=== PATIENT | female | born 1990 | race Caucasian/White ===

== ENCOUNTER → 2017-05-03 | Outpatient (CLI) | payer OTHER ==
[2015-07-30 03:58] VITALS: BP 124/79
[2017-05-03 09:44] LABS: BASOPHILS # (AUTO) 0.1 X10^3/uL (0.0-0.1); BASOPHILS % (AUTO) 0.6 % (0.2-1.0); EOSINOPHILS % (AUTO) 0.5 % (0.9-2.9); HEMATOCRIT 33.1 % (36.0-47.0); HEMOGLOBIN 11.2 g/dL (12.0-16.0); LYMPHOCYTES # (AUTO) 1.3 X10^3/uL (1.3-2.9); LYMPHOCYTES % (AUTO) 13.7 % (21.0-51.0); MEAN CORPUSCULAR HGB CONC 33.9 g/dL (33.0-35.0); MEAN CORPUSCULAR VOLUME 76.8 fL (80.0-100.0); MEAN PLATELET VOLUME 8.2 fL (7.4-11.0); MONOCYTES # (AUTO) 0.4 x10^3/uL (0.3-0.8); MONOCYTES % (AUTO) 4.7 % (0.0-13.0); NEUTROPHILS # (AUTO) 7.4 x10^3/uL (2.2-4.8); NEUTROPHILS % (AUTO) 80.5 % (42.0-75.0); PLATELET COUNT 252 X10^3/uL (150.0-450.0); RED BLOOD COUNT 4.31 X10^6/uL (3.5-5.4); RED CELL DISTRIBUTION WIDTH 14.7 % (11.6-16.5); WHITE BLOOD COUNT 9.2 X10^3/uL (3.6-10.0)
[2017-05-03 10:31] LABS: BLOOD UREA NITROGEN 6 mg/dL (7-18); CALCIUM 8.3 mg/dL (8.5-10.1); CARBON DIOXIDE 25.1 mmol/L (21-32); CREATININE 0.52 mg/dL (0.55-1.02); GLUCOSE 78 mg/dL (65-99); eGFR BLACK RACES > 60 (>60); eGFR NON BLACK RACES > 60 (>60)
[2017-05-03 10:35] LABS: CHLORIDE 102 mmol/L (98-107); SODIUM 132 mmol/L (136-145)
[2017-05-03 16:41] LABS: BILIRUBIN,URINE NEGATIVE (NEGATIVE); BLOOD/HEMOGLOBIN,URINE 1+ (NEGATIVE); GLUCOSE, URINE NEGATIVE (NEGATIVE); KETONES,URINE NEGATIVE (NEGATIVE); LEUKOCYTE ESTERASE ,URINE 1+ (NEGATIVE); NITRITES,URINE NEGATIVE (NEGATIVE); PROTEIN,URINE 1+ (NEGATIVE); UROBILINOGEN,URINE NORMAL (NORMAL)
[2017-05-03 16:44] LABS: APPEARANCE,URINE CLEAR (CLEAR); BACTERIA,URINE TRACE /HPF (NEGATIVE); COLOR,URINE YELLOW (YELLOW); RBC,URINE RARE /HPF (NEGATIVE); SQUAMOUS EPITHELIAL CELL,UR NUMEROUS /HPF (NEGATIVE)
[2017-05-03 16:45] LABS: AMORPHOUS SEDIMENT,UR 1+ /HPF (NEGATIVE)
== END ==
LOC: LAB 08:34
PROVIDERS: ATTEND Specialist
DX: Z01.818 Encounter for other preprocedural examination (principal); Z34.83 Encounter for supervision of other normal pregnancy, third trimester; Z3A.00 Weeks of gestation of pregnancy not specified
CPT/HCPCS: 36415; 80048; 81001; 85025; 85610; 85730; 86592; 86850; 86900; 86901; 87086

== ENCOUNTER 2017-05-05 06:23 | Inpatient (IN) | payer OTHER ==
[~2017-05-05 06:23] MED LIST: ANCEF VIAL 1 GM ONE; NS 50 ML IV + SPIKE MINIBAG* 50 ML IV ONE
[2017-05-05] MEDS ORDERED: DURAMORPH ONE (07:03)
[2017-05-05] MEDS: LR 1000 ML IV 1,000 ML IV ONE (07:20)
[2017-05-05] MEDS ORDERED: LR 1000 ML IV 1,000 ML IV ONE (07:37)
[2017-05-05] MEDS ORDERED: D5 1/2 NS 1000 ML 1,000 ML IV SCH (08:03)
[2017-05-05] MEDS ORDERED: ANCEF VIAL 1 GM 1 GM in NS 50 ML IV + SPIKE MINIBAG* 50 ML IV PRN (08:03)
[2017-05-05] MEDS ORDERED: NS IRRIGATION 1000 ML 1,000 ML IR ONE (08:10)
[2017-05-05 08:17] LABS: BILIRUBIN,URINE NEGATIVE (NEGATIVE); BLOOD/HEMOGLOBIN,URINE 4+ (NEGATIVE); GLUCOSE, URINE NEGATIVE (NEGATIVE); KETONES,URINE NEGATIVE (NEGATIVE); LEUKOCYTE ESTERASE ,URINE NEGATIVE (NEGATIVE); NITRITES,URINE NEGATIVE (NEGATIVE); PROTEIN,URINE NEGATIVE (NEGATIVE); UROBILINOGEN,URINE NORMAL (NORMAL)
[2017-05-05 08:21] LABS: APPEARANCE,URINE SLIGHTLY HAZY (CLEAR); COLOR,URINE YELLOW (YELLOW)
[2017-05-05 08:24] LABS: BACTERIA,URINE TRACE /HPF (NEGATIVE); MUCUS,URINE MODERATE /HPF (NEGATIVE); RBC,URINE 20-25 /HPF (NEGATIVE); SQUAMOUS EPITHELIAL CELL,UR FEW /HPF (NEGATIVE)
[2017-05-05] MEDS ORDERED: PHENERGAN INJ 25 MG IVP PRN (09:00)
[2017-05-05] MEDS ORDERED: BENADRYL INJ 50 MG VIAL IVP PRN ×2 (09:00→09:28)
[2017-05-05] MEDS ORDERED: ZOFRAN INJ 4 MG VIAL IVP PRN ×2 (09:00→09:28)
[2017-05-05] MEDS ORDERED: REGLAN INJ 10 MG VIAL IVP PRN ×2 (09:00→09:28)
[2017-05-05] MEDS ORDERED: [UNRECOGNIZED DRUG - OTHER] IV ONE (09:09)
[2017-05-05] MEDS ORDERED: OXYTOCIN IV ONE (09:09)
[2017-05-05] MEDS ORDERED: DEXTROSE IV ONE (09:09)
[2017-05-05] MEDS ORDERED: TORADOL 30 MG VIAL IVP PRN (09:28)
[2017-05-05] MEDS ORDERED: NARCAN INJ IVP PRN (09:28)
[2017-05-05] MEDS ORDERED: PERCOCET TAB 5/325 MG PO PRN (09:28)
[2017-05-05] MEDS ORDERED: ADACEL TDaP IM ONE (09:28)
[2017-05-05] MEDS: ZANTAC PO SCH ×2 (10:36→21:16)
[2017-05-05] MEDS: PRENATAL PLUS PO SCH (13:46)
[2017-05-05] MEDS ORDERED: VERSED ONE (14:55)
[2017-05-05] MEDS ORDERED: DIPRIVAN VIAL ONE (14:55)
[2017-05-05] MEDS ORDERED: EPHEDRINE SULFATE INJ ONE (14:55)
[2017-05-05] MEDS ORDERED: BENADRYL CAP/TAB 25 MG PO PRN (21:00)
[2017-05-05] MEDS: MYLICON TAB 80 MG CHEW PO PRN (21:16)
[2017-05-06 05:21] LABS: HEMOGLOBIN 9.6 g/dL (12.0-16.0)
[2017-05-06] MEDS: MYLICON TAB 80 MG CHEW PO PRN ×3 (05:41→21:08)
[2017-05-06] MEDS ORDERED: PERCOCET TAB 5/325 MG PO PRN (06:26)
[2017-05-06] MEDS: LR 1000 ML IV 1,000 ML IV ONE (06:40)
[2017-05-06] MEDS: COLACE CAP 100 MG PO SCH ×2 (08:02→20:10)
[2017-05-06] MEDS: ZANTAC PO SCH ×2 (08:02→20:10)
[2017-05-06] MEDS: PRENATAL PLUS PO SCH (08:10)
[2017-05-06] MEDS ORDERED: BACITRACIN ZINC ONE (09:07)
[2017-05-06] MEDS: MOTRIN TAB 800 MG PO PRN ×2 (09:14→16:59)
[2017-05-06] MEDS: ZOFRAN TAB 4 MG PO PRN ×2 (09:31→20:13)
[2017-05-06] MEDS: BACTROBAN OINT TOP SCH ×2 (13:08→21:58)
[2017-05-07] MEDS: MOTRIN TAB 800 MG PO PRN ×2 (00:54→09:12)
[2017-05-07] MEDS: BACTROBAN OINT TOP SCH ×2 (05:55→13:37)
[2017-05-07] MEDS: MYLICON TAB 80 MG CHEW PO PRN (06:30)
[2017-05-07] MEDS: PRENATAL PLUS PO SCH (09:09)
[2017-05-07] MEDS: ZANTAC PO SCH (09:11)
[2017-05-07] MEDS: COLACE CAP 100 MG PO SCH (09:12)
[2017-05-07 13:39] VITALS: BP 125/70
== END 2017-05-07 15:00 | disposition home or self-care (01) | DRG 775 ==
LOC: LD 06:23 → MED/SURG 09:39
PROVIDERS: ADMIT Specialist; ATTEND Specialist
PROC: 0UB70ZZ Excision of Bilateral Fallopian Tubes, Open Approach (ICD-10-PCS; 2017-05-05)
PROC: 10D00Z1 Extraction of Products of Conception, Low, Open Approach (ICD-10-PCS; principal; 2017-05-05 07:30)
DX: O99.613 Diseases of the digestive system complicating pregnancy, third trimester (principal); Z37.0 Single live birth; O34.211 Maternal care for low transverse scar from previous cesarean delivery; N85.8 Other specified noninflammatory disorders of uterus; Z22.330 Carrier of Group B streptococcus; Z30.2 Encounter for sterilization; Z3A.38 38 weeks gestation of pregnancy
CPT/HCPCS: 36415; 81001; 85014; 85018; A4216; A4222; S0181; S0197; J0690; J1200; J1885; J2250; J3490; J7120

== ENCOUNTER 2018-01-14 18:18 | Emergency (ER) | payer OTHER ==
[2018-01-14 18:38] VITALS: BP 136/75; BMI 33.9
--- NOTE | 2018-01-14 19:14 | DR.GENAD ---
HPI - PCP Primary Care Physician: JASE GARCIA - HPI Comment HPI Comment: HISTORY ABOVE. - Complaint/Symptoms Chief Complaint Doctors Comments: PATIENT SAID HAD BRIEF EPISODE OF PRECORDIAL CHEST PAIN ASSOCIATED WITH BLURRED VISION AND NEAR SYNCOPAL FEELING. LASTED BRIEFLY AND IMPROVE WHEN SHE TOOK DEEP BREATH. HAVE HAD EPISODE OF CHEST PAIN THAT RESOLVE WITH DEEP BREADING PREVIOUSLY. TODAY EPISODE MORE INTENSE. ASSOCIATED SYMPTOMS HAPPEN ONLY TODAY. Chief Complaint:: ABOUT 4:15 THIS AFTERNOON PT WAS SITTING IN HOT CAR AND HAD A SUDDEN ONSET OF TIGHT SQUEEZING PAIN IN LEFT CHEST WALL, NONRADITING RATED 5/ 10. PT TOOK DEEP BREATH AND PAIN WAS GONE BUT SHE HAD A QUICK EPISODE OF BLURRED VISION THAT LAST ONLY A FEW SECONDS. - Nurses notes reviewed Nurses Notes Review: Yes - Source History Provided: Patient - Mode of Arrival Mode of Arrival: Ambulatory - Timing Onset of Chief Complaint: 01/14/18 Came on: Suddenly - Duration Duration: Since Onset Duration: Hours - Severity Severity: Moderate PMH - PMH Past Medical History: Yes Past Medical History: Anxiety, GERD Past Medical History Comment: OPTIC MIGRAINES Past Surgical History: Yes Surgical History: Appendectomy, Past Surgical History Comment: D&C, MOLE REMOVED FROM NECK - Family History History of Family Medical Conditions: Yes Family Medical History: Coronary Artery Disease, Hypertension - Social History Does patient currently use any type of tobacco product: No Have you used tobacco products in the last 12 months: No Does any household member use tobacco: No Alcohol Use: None Do you use any recreational Drugs:: No Lives With: Family Lives Where: Home - infectious screening In the last 2 months have you had wt loss of >10#?: NO Have you had fever, night sweats or hemotysis?: No Have you traveled outside the country in the last 6 months?: No Isolation: Standard ROS - Review of Systems Constitutional: No Symptoms Reported Eyes: No Symptoms Reported ENTM: No Symptoms Reported Respiratoy: No Symptoms Reported Cardiovascular: Chest Pain. negative: Syncope (NEAR SYNCOPAL EPISODE) Gastrointestinal/Abdominal: No Symptoms Reported Genitourinary: No Symptoms Reported Neurological: No Symptoms Reported Musculoskeletal: No Symptoms Reported Integumentary: No Symptoms Reported Hematologic/Lymphatic: No Symptoms Reported Endocrine: No Symptoms Reported All Other Systems: Reviewed and Negative PE - Vital Signs Vitals: Temperature 99.2 F Pulse Rate 98 Respiratory Rate 20 Blood Pressure [Right Arm] 125/70 Blood Pressure [Left Arm] 119/66 Blood Pressure 136/75 O2 Sat by Pulse Oximetry 100 - General Limitations: No Limitations General Appearance: Alert - Head Head Exam: Normal Inspection - Eyes Eye exam: Normal Appearance - ENT ENT Exam: Normal External Ear Exam External Ear Exam: Normal External Inspection TM/Canal Exam: Bilateral Normal Nose Exam: Normal Nose Exam Mouth Exam: Normal Inspection Throat Exam: Normal Inspection - Neck Neck Exam: Trachea Midline - Chest Chest Inspection: Symmetric Chest Wall Rise - Respiratory Respiratory Exam: Normal Lung Sounds Bilat Respiratory Exam: Bilateral Clear to Auscultation - Cardiovascular Cardiovascular Exam: Regular Rate, Normal Rhythm, Normal Heart Sounds - Abdominal Exam Abdominal Exam: Normal Bowel Sounds, Soft. negative: Tenderness - Extremities Extremities Exam: Normal Inspection - Back Back Exam: Normal Inspection - Neurologic Neurological Exam: Alert, Oriented X3, CN II-XII Intact, Normal Gait. negative : Motor Sensory Deficit - Psychiatric Psychiatric Exam: Normal Affect, Normal Mood - Skin Skin Exam: Normal Color MDM - Additional Information Additional Information Obtained From: Family - Differential Diagnosis Differential Diagnosis: CHEST PAIN, DC, ELECTROLYTE IMBALANCE, PNEUMONIA, NEAR SYNCOPAL EPISODE. Course - Treatment Treatment: SEE ORDERS. - Education/Counseling Education/Counseling: Patient, Family, Education Educated On: Diagnosis, Needs for Follow Up ROR - Labs Reviewed Laboratory Results Reviewed?: Yes Result Diagrams: 01/14/18 19:39 01/14/18 19:39 Laboratory: WBC 12.1 X10^3/uL (3.6-10.0) H 01/14/18 19:39 RBC 4.99 X10^6/uL (3.5-5.4) 01/14/18 19:39 Hgb 13.4 g/dL (12.0-16.0) 01/14/18 19:39 Hct 39.0 % (36.0-47.0) 01/14/18 19:39 MCV 78.1 fL (80.0-100.0) L 01/14/18 19:39 MCH 26.9 pg (27.0-34.0) L 01/14/18 19:39 MCHC 34.4 g/dL (33.0-35.0) 01/14/18 19:39 RDW 13.5 % (11.6-16.5) 01/14/18 19:39 Plt Count 293 X10^3/uL (150.0-450.0) 01/14/18 19:39 MPV 8.1 fL (7.4-11.0) 01/14/18 19:39 Neut % (Auto) 84.1 % (42.0-75.0) H 01/14/18 19:39 Lymph % (Auto) 11.8 % (21.0-51.0) L 01/14/18 19:39 [place] % (Auto) 3.1 % (0.0-13.0) 01/14/18 19:39 Eos % (Auto) 0.3 % (0.9-2.9) L 01/14/18 19:39 Baso % (Auto) 0.7 % (0.2-1.0) 01/14/18 19:39 Neut # (Auto) 10.2 x10^3/uL (2.2-4.8) H 01/14/18 19:39 Lymph # (Auto) 1.4 X10^3/uL (1.3-2.9) 01/14/18 19:39 [place] # (Auto) 0.4 x10^3/uL (0.3-0.8) 01/14/18 19:39 Eos # (Auto) 0.0 x10^3/uL (0.0-0.2) 01/14/18 19:39 Baso # (Auto) 0.1 X10^3/uL (0.0-0.1) 01/14/18 19:39 Absolute Nucleated RBC 0.0 /100WBC 01/14/18 19:39 Sodium 140 mmol/L (136-145) 01/14/18 19:39 Corrected Sodium TNP 01/14/18 19:39 Potassium 3.8 mmol/L (3.5-5.1) 01/14/18 19:39 Chloride 104 mmol/L (98-107) 01/14/18 19:39 Carbon Dioxide 23.6 mmol/L (21-32) 01/14/18 19:39 BUN 12 mg/dL (7-18) 01/14/18 19:39 Creatinine 0.81 mg/dL (0.55-1.02) 01/14/18 19:39 Est GFR (MDRD) Af Amer > 60 (>60) 01/14/18 19:39 Est GFR (MDRD) Non-Af > 60 (>60) 01/14/18 19:39 Glucose 106 mg/dL (65-99) H 01/14/18 19:39 Calcium 8.6 mg/dL (8.5-10.1) 01/14/18 19:39 Corrected Calcium TNP 01/14/18 19:39 Total Bilirubin 0.60 mg/dL (0.2-1.0) 01/14/18 19:39 AST 12 Units/L (15-37) L 01/14/18 19:39 ALT 20 Units/L (12-78) 01/14/18 19:39 Alkaline Phosphatase 52 Units/L (46-116) 01/14/18 19:39 Creatine Kinase 90 Units/L (26-192) 01/14/18 19:39 CK-MB (CK-2) < 1.0 ng/mL (0-4.0) 01/14/18 19:39 CK/CKMB % Calc 1.1 % (<4) 01/14/18 19:39 Troponin I < 0.02 ng/mL (0-1.5) 01/14/18 19:39 Total Protein 8.0 g/dL (6.4-8.2) 01/14/18 19:39 Albumin 4.2 g/dL (3.4-5.0) 01/14/18 19:39 Globulin 3.8 g/dL (2.5-4.5) 01/14/18 19:39 Albumin/Globulin Ratio 1.1 Ratio (1.1-2.1) 01/14/18 19:39 - EKG [place]: Normal Rhythm: NSR (EKG NOTED.) - Diagnosis Discharge Problem: Chest pain Qualifiers: Chest pain type: precordial pain Qualified Code(s): R07.2 - Precordial pain - Discharge Plan Condition: Stable - Follow ups/Referrals Follow ups/Referrals: MELANI MOREAU [Primary Care Provider] - 01/15/18 - Instructions Instructions: Chest Pain Observation Additional Instructions: RETURN TO ED IF WORSE.
[2018-01-14 19:48] LABS: BASOPHILS # (AUTO) 0.1 X10^3/uL (0.0-0.1); BASOPHILS % (AUTO) 0.7 % (0.2-1.0); EOSINOPHILS % (AUTO) 0.3 % (0.9-2.9); HEMOGLOBIN 13.4 g/dL (12.0-16.0); LYMPHOCYTES # (AUTO) 1.4 X10^3/uL (1.3-2.9); LYMPHOCYTES % (AUTO) 11.8 % (21.0-51.0); MEAN CORPUSCULAR HEMOGLOBIN 26.9 pg (27.0-34.0); MEAN CORPUSCULAR HGB CONC 34.4 g/dL (33.0-35.0); MEAN CORPUSCULAR VOLUME 78.1 fL (80.0-100.0); MEAN PLATELET VOLUME 8.1 fL (7.4-11.0); MONOCYTES # (AUTO) 0.4 x10^3/uL (0.3-0.8); MONOCYTES % (AUTO) 3.1 % (0.0-13.0); NEUTROPHILS # (AUTO) 10.2 x10^3/uL (2.2-4.8); NEUTROPHILS % (AUTO) 84.1 % (42.0-75.0); PLATELET COUNT 293 X10^3/uL (150.0-450.0); RED BLOOD COUNT 4.99 X10^6/uL (3.5-5.4); RED CELL DISTRIBUTION WIDTH 13.5 % (11.6-16.5); WHITE BLOOD COUNT 12.1 X10^3/uL (3.6-10.0)
[2018-01-14 20:04] LABS: BLOOD UREA NITROGEN 12 mg/dL (7-18); CALCIUM 8.6 mg/dL (8.5-10.1); CARBON DIOXIDE 23.6 mmol/L (21-32); CHLORIDE 104 mmol/L (98-107); CREATININE 0.81 mg/dL (0.55-1.02); SODIUM 140 mmol/L (136-145); TROPONIN I < 0.02 ng/mL (0-1.5); eGFR BLACK RACES > 60 (>60); eGFR NON BLACK RACES > 60 (>60)
[2018-01-14 20:08] LABS: ALANINE AMINOTRANSFERASE 20 Units/L (12-78); ALBUMIN 4.2 g/dL (3.4-5.0); ALKALINE PHOSPHATASE 52 Units/L (46-116); ASPARTATE AMINO TRANSFERASE 12 Units/L (15-37); CKMB % 1.1 % (<4); CREATINE KINASE 90 Units/L (26-192); CREATINE KINASE MB < 1.0 ng/mL (0-4.0)
== END 2018-01-14 20:35 | disposition home or self-care (01) ==
LOC: ER 18:40
DX: R07.2 Precordial pain (principal)
CPT/HCPCS: 36415; 80053; 82550; 82553; 84484; 85025; 93005; 93010; 99282; 99284